=== PATIENT | male | born 1980 ===

== ENCOUNTER 2020-07-26 07:19 | Day surgery (SDC) | payer OTHER | END 2020-07-26 12:25 | disposition home or self-care (01) | LOC: AMB-ENDOS 07:19 | PROVIDERS: ATTEND Surgery | DX: K62.89 Other specified diseases of anus and rectum (principal); Z12.11 Encounter for screening for malignant neoplasm of colon; Z20.822 Contact with and (suspected) exposure to COVID-19 ==

== ENCOUNTER 2020-09-04 08:30 | Inpatient (IN) | payer OTHER ==
[2020-09-12] MEDS ORDERED: TAMS0.4C PO (07:58)
[2020-09-12] MEDS ORDERED: PERCOCET 5-3251 EACH PO (07:58)
== END 2020-09-12 10:33 | disposition home or self-care (01) | DRG 331 ==
LOC: EDSTATUS 08:30 → ADM 08:30 → O/R 09-08 05:45 → SURH 09-08 08:00
PROVIDERS: ADMIT Surgery; ATTEND Surgery
PROC: 0DBP4ZZ Excision of Rectum, Percutaneous Endoscopic Approach (ICD-10-PCS; 2020-09-08)
PROC: 0DJD8ZZ Inspection of Lower Intestinal Tract, Via Natural or Artificial Opening Endoscopic (ICD-10-PCS; 2020-09-08)
PROC: 0DBN4ZZ Excision of Sigmoid Colon, Percutaneous Endoscopic Approach (ICD-10-PCS; principal; 2020-09-08 08:00)
DX: Z43.3 Encounter for attention to colostomy (principal); N99.89 Other postprocedural complications and disorders of genitourinary system; R33.8 Other retention of urine

== ENCOUNTER 2021-10-22 15:45 | Emergency (ER) | payer OTHER ==
[~2021-10-22] VITALS: Ht 170.2 cm; Wt 58.1 kg
[~2021-10-22 15:45] MED LIST: PERCOCET 5-3251 EACH PO; TAMS0.4C PO
== END 2021-10-22 23:56 | disposition home or self-care (01) ==
LOC: ER 15:45
DX: K52.9 Noninfective gastroenteritis and colitis, unspecified (principal); R10.84 Generalized abdominal pain; E11.9 Type 2 diabetes mellitus without complications; I10 Essential (primary) hypertension

== ENCOUNTER 2023-02-06 08:00 | Inpatient (IN) | payer OTHER ==
[~2023-02-06] VITALS: Ht 170.2 cm; Wt 58.5 kg
[2023-02-06 10:29] LABS: HEMATOCRIT 43.8 % (39.0-48.0); HEMOGLOBIN 15.2 g/dL (13-16.00); MEAN CELL VOLUME 89.8 fL (80.0-100.00); MEAN CORPUSCULAR HEMOGLOBIN 31.2 pg (27.00-32.0); MEAN CORPUSCULAR HGB CONC 34.8 g/dl (32.0-36.0); PLATELET COUNT 231 K/uL (150-450); RED BLOOD COUNT 4.88 M/uL (4.00-6.00); RED CELL DISTRIBUTION WIDTH 13.9 % (11.5-14.5)
[2023-02-06 10:32] LABS: URINE APPEARANCE Clear; URINE BILIRRUBIN Negative (NEGATIVE); URINE BLOOD Negative; URINE COLOR Yellow; URINE GLUCOSE Negative (NEGATIVE); URINE LEUKOCYTE Negative; URINE NITRATE Negative; URINE PROTEIN Negative (NEGATIVE); URINE UROBILINOGEN 0.2 E.U./dl
[2023-02-06 10:37] LABS: URINE RBC 3.4 uL (0.0-20.8)
[2023-02-06 11:02] LABS: CALCIUM 9.3 mg/dL (8.5-10.1); CREATININE SERUM 0.78 mg/dL (0.70-1.30); GFR 108.63; POTASSIUM 3.92 mEq/L (3.5-5.1)
[2023-02-06 11:07] LABS: URINE BACTERIA 2.5 uL (0.0-1933); URINE EPITHELIAL CELLS 0.9 uL (0.0-38.8)
[2023-02-06 11:11] LABS: INR 1.01; PARTIAL THROMBOPLASTIN TIME 26.7 SECONDS (22.0-34.0); PROTHROMBIN TIME 10.6 SECONDS (9.0-11.5)
[2023-02-14 04:26] LABS: HEMATOCRIT 36.2 % (39.0-48.0); HEMOGLOBIN 12.7 g/dL (13-16.00); MEAN CELL VOLUME 90.2 fL (80.0-100.00); MEAN CORPUSCULAR HEMOGLOBIN 31.6 pg (27.00-32.0); MEAN CORPUSCULAR HGB CONC 35.1 g/dl (32.0-36.0); PLATELET COUNT 188 K/uL (150-450); RED BLOOD COUNT 4.02 M/uL (4.00-6.00)
[2023-02-14 04:44] LABS: ALBUMIN 3.1 gm/dL (3.4-5.0); CALCIUM 7.9 mg/dL (8.5-10.1); CREATININE SERUM 0.58 mg/dL (0.70-1.30); GFR 152.91; MAGNESIUM 1.8 mg/dL (1.8-2.4); PHOSPHOROUS 2.2 mg/dL (2.5-4.9); POTASSIUM 3.77 mEq/L (3.5-5.1)
[2023-02-15 08:33] LABS: ALBUMIN 2.6 gm/dL (3.4-5.0); BILIRUBIN TOTAL 0.58 mg/dL (0.3-1.2); CALCIUM 7.4 mg/dL (8.5-10.1); CREATININE SERUM 0.53 mg/dL (0.70-1.30); GFR 169.68; GLOBULINA 2.2 G/DL (2.4-3.5); POTASSIUM 3.55 mEq/L (3.5-5.1); TOTAL PROTEIN 4.8 gm/dL (6.4-8.2)
[2023-02-15 08:36] LABS: HEMATOCRIT 30.2 % (39.0-48.0); HEMOGLOBIN 10.8 g/dL (13-16.00); MEAN CELL VOLUME 90.4 fL (80.0-100.00); MEAN CORPUSCULAR HEMOGLOBIN 32.4 pg (27.00-32.0); MEAN CORPUSCULAR HGB CONC 35.8 g/dl (32.0-36.0); PLATELET COUNT 166 K/uL (150-450); RED BLOOD COUNT 3.35 M/uL (4.00-6.00); RED CELL DISTRIBUTION WIDTH 13.5 % (11.5-14.5)
[2023-02-15] MEDS ORDERED: MIRALAX17 GM PO (11:06)
[2023-02-15] MEDS ORDERED: TRAMADOL HCL50 MG PO (11:06)
[2023-02-15] MEDS ORDERED: NEURONTIN600 M1 PO (11:06)
[2023-02-15] MEDS ORDERED: TYLENOL ARTHRI650 MG PO (11:06)
[2023-02-15] MEDS ORDERED: KETO10TA2 PO (11:06)
[2023-02-16 06:46] LABS: HEMATOCRIT 28.1 % (39.0-48.0); HEMOGLOBIN 9.9 g/dL (13-16.00); MEAN CELL VOLUME 89.9 fL (80.0-100.00); MEAN CORPUSCULAR HEMOGLOBIN 31.8 pg (27.00-32.0); MEAN CORPUSCULAR HGB CONC 35.4 g/dl (32.0-36.0); PLATELET COUNT 176 K/uL (150-450); RED BLOOD COUNT 3.12 M/uL (4.00-6.00); RED CELL DISTRIBUTION WIDTH 13.5 % (11.5-14.5)
[2023-02-17 05:23] LABS: CALCIUM 7.9 mg/dL (8.5-10.1); CREATININE SERUM 0.52 mg/dL (0.70-1.30); GFR 173.45; MAGNESIUM 1.7 mg/dL (1.8-2.4); PHOSPHOROUS 2.4 mg/dL (2.5-4.9); POTASSIUM 3.43 mEq/L (3.5-5.1)
[2023-02-17 06:35] LABS: HEMATOCRIT 27.1 % (39.0-48.0); HEMOGLOBIN 9.8 g/dL (13-16.00); MEAN CORPUSCULAR HEMOGLOBIN 32.1 pg (27.00-32.0); MEAN CORPUSCULAR HGB CONC 36.1 g/dl (32.0-36.0); PLATELET COUNT 197 K/uL (150-450); RED BLOOD COUNT 3.05 M/uL (4.00-6.00); RED CELL DISTRIBUTION WIDTH 13.3 % (11.5-14.5)
[2023-02-19 10:20] LABS: HEMATOCRIT 30.6 % (39.0-48.0); HEMOGLOBIN 10.9 g/dL (13-16.00); MEAN CELL VOLUME 89.8 fL (80.0-100.00); MEAN CORPUSCULAR HEMOGLOBIN 31.9 pg (27.00-32.0); MEAN CORPUSCULAR HGB CONC 35.5 g/dl (32.0-36.0); PLATELET COUNT 295 K/uL (150-450); RED CELL DISTRIBUTION WIDTH 13.6 % (11.5-14.5)
[2023-02-19 10:50] LABS: CALCIUM 8.6 mg/dL (8.5-10.1); CREATININE SERUM 0.58 mg/dL (0.70-1.30); GFR 152.91; PHOSPHOROUS 2.6 mg/dL (2.5-4.9); POTASSIUM 3.31 mEq/L (3.5-5.1)
== END 2023-02-20 12:29 | disposition home or self-care (01) | DRG 330 ==
LOC: SURH 02-13 05:50 → O/R 02-13 05:50 → SURG 02-13 08:00 → SURH 02-13 12:40 → SURG 02-13 13:45 → SURH 02-20 12:29
PROVIDERS: Internal Medicine; Surgery; Urology; ADMIT Surgery; ATTEND Surgery
PROC: 0DQE0ZZ Repair Large Intestine, Open Approach (ICD-10-PCS; 2023-02-13)
PROC: 0WQF0ZZ Repair Abdominal Wall, Open Approach (ICD-10-PCS; 2023-02-13)
PROC: 0KXL0ZZ Transfer Left Abdomen Muscle, Open Approach (ICD-10-PCS; 2023-02-13)
PROC: 0KXK0ZZ Transfer Right Abdomen Muscle, Open Approach (ICD-10-PCS; 2023-02-13)
PROC: BV44ZZZ Ultrasonography of Scrotum (ICD-10-PCS; 2023-02-13)
PROC: 0DQ80ZZ Repair Small Intestine, Open Approach (ICD-10-PCS; principal; 2023-02-13 13:45)
PROC: 0VBG0ZZ Excision of Left Spermatic Cord, Open Approach (ICD-10-PCS; 2023-02-13 13:45)
PROC: 0DNW0ZZ Release Peritoneum, Open Approach (ICD-10-PCS; 2023-02-13 13:45)
PROC: BW21ZZZ Computerized Tomography (CT Scan) of Abdomen and Pelvis (ICD-10-PCS; 2023-02-19)
DX: K43.0 Incisional hernia with obstruction, without gangrene (principal); K91.71 Accidental puncture and laceration of a digestive system organ or structure during a digestive system procedure; N99.72 Accidental puncture and laceration of a genitourinary system organ or structure during other procedure; K66.0 Peritoneal adhesions (postprocedural) (postinfection); E83.51 Hypocalcemia; E87.6 Hypokalemia; K59.09 Other constipation